=== PATIENT | male | born 1970 | race Caucasian/White ===

== ENCOUNTER → 2017-08-09 08:50 | Outpatient (CLI) | payer OTHER, SELFPAY ==
[2017-08-09 12:38] LABS: Absolute Lymphocyte Count 2.26 X10^3/ul (0.83-4.51); Basophil# 0.14 X10^3/uL; Basophil% 1.5 % (0-1); Eosinophil# 0.22 X10^3/uL; Eosinophils% 2.3 % (0-5); Hematocrit 51.4 % (40-54); Hemoglobin 17.7 g/dl (13.0-16.5); Lymphocyte # 2.26 X10^3/ul (4.0); Mean Corp Hgb Conc 34.4 g/gl (32-36); Mean Corpuscular Hgb 31.9 pg (27.0-32.0); Mean Corpuscular Volume 92.8 fL (80-94); Mean Platelet Vol. 11.8 fl (6.2-12.0); Monocyte% 8.5 % (0-10); Neutrophil # 5.99 X10^3/uL (2.7-7.7); Neutrophil % 63.6 % (47-70); Platelet Count 211 K/mm3 (150-450); RBC Distribution Width CV 13.3 % (11.6-14.6); Red Blood Count 5.54 M/mm3 (4.6-6.2); White Blood Count 9.4 K/mm3 (4.4-11.0)
[2017-08-09 12:39] LABS: POSITIVE COUNT NO; POSITIVE DIFFERENTIAL NO; POSITIVE MORPHOLOGY NO
[2017-08-09 13:14] LABS: ALB/GLOB Ratio 1.1 RATIO (0.9-2.4); AST(SGOT) 20 U/L (15-37); Alanine Aminotransfer ALT/SGPT 37 U/L (16-61); Albumin, Serum 4.3 g/dL (3.2-5.0); Alkaline Phosphatase 72 U/L (45-117); Anion Gap 10 (5-15); BUN 14 mg/dL (7-18); BUN/Creat Ratio 14.7 RATIO (10-20); Calcium,Total 9.5 mg/dL (8.5-10.1); Chloride 98 mmol/L (98-107); Creatinine, Serum 0.95 mg/dL (0.70-1.30); EST Glomerular Filtration Rate 90 mL/min (>60); Est Glom Filt Rate - Afr Amer 109 mL/min (>60); Globulin 3.8 g/dL (2.2-4.2); Glucose 159 mg/dL (74-106); Potassium 4.2 mmol/L (3.5-5.1); Protein, Total 8.1 g/dL (6.4-8.2); Sodium Level 135 mmol/L (136-145); Thyroid Stim Hormone (TSH) 1.71 uIU/mL (0.358-3.74)
== END ==
PROVIDERS: Visit Provider Family Medicine Geriatric Medicine
DX: E11.9 Type 2 diabetes mellitus without complications (principal); I10 Essential (primary) hypertension; F52.8 Other sexual dysfunction not due to a substance or known physiological condition
CPT/HCPCS: 36415; 80053; 84403; 84443; 85025

== ENCOUNTER → 2017-10-25 10:50 | Outpatient (CLI) | payer OTHER, SELFPAY ==
[2017-10-25 12:54] LABS: Absolute Lymphocyte Count 2.52 X10^3/ul (0.83-4.51); Absolute Neutrophil Count 5.6 X10^3/uL (2.0-7.7); Basophil# 0.16 X10^3/uL; Basophil% 1.7 % (0-1); Eosinophil# 0.39 X10^3/uL; Eosinophils% 4.1 % (0-5); Hemoglobin 16.9 g/dl (13.0-16.5); Lymphocyte # 2.52 X10^3/ul (4.0); Lymphocyte % 26.5 % (19-41); Mean Corp Hgb Conc 35.2 g/gl (32-36); Mean Corpuscular Hgb 32.5 pg (27.0-32.0); Mean Corpuscular Volume 92.3 fL (80-94); Monocyte# 0.82 X10^3/uL; Monocyte% 8.6 % (0-10); Neutrophil # 5.57 X10^3/uL (2.7-7.7); Neutrophil % 58.7 % (47-70); Platelet Count 190 K/mm3 (150-450); RBC Distribution Width CV 13.3 % (11.6-14.6); RBC Distribution Width SD 43.7 fl (35.1-43.9); White Blood Count 9.5 K/mm3 (4.4-11.0)
[2017-10-25 12:57] LABS: POSITIVE COUNT NO; POSITIVE DIFFERENTIAL NO; POSITIVE MORPHOLOGY NO
[2017-10-25 13:26] LABS: ALB/GLOB Ratio 1.2 RATIO (0.9-2.4); AST(SGOT) 15 U/L (15-37); Alanine Aminotransfer ALT/SGPT 30 U/L (16-61); Albumin, Serum 4.2 g/dL (3.2-5.0); Alkaline Phosphatase 77 U/L (45-117); Anion Gap 7 (5-15); BUN 12 mg/dL (7-18); BUN/Creat Ratio 12.7 RATIO (10-20); Calcium,Total 8.9 mg/dL (8.5-10.1); Chloride 98 mmol/L (98-107); Creatinine, Serum 0.95 mg/dL (0.70-1.30); EST Glomerular Filtration Rate 90 mL/min (>60); Est Glom Filt Rate - Afr Amer 109 mL/min (>60); Globulin 3.6 g/dL (2.2-4.2); Glucose 354 mg/dL (74-106); Potassium 4.2 mmol/L (3.5-5.1); Protein, Total 7.8 g/dL (6.4-8.2); Sodium Level 134 mmol/L (136-145); Thyroid Stim Hormone (TSH) 1.92 uIU/mL (0.358-3.74)
== END ==
LOC: POLAB3 10:51
PROVIDERS: Visit Provider Family Medicine Geriatric Medicine
DX: I10 Essential (primary) hypertension (principal); E11.9 Type 2 diabetes mellitus without complications; F52.8 Other sexual dysfunction not due to a substance or known physiological condition
CPT/HCPCS: 36415; 80053; 84403; 84443; 85025

== ENCOUNTER → 2017-11-08 11:09 | Outpatient (CLI) | payer OTHER, SELFPAY ==
--- NOTE | 2017-11-08 11:18 | RAD_ITS ---
STUDY: X-RAY - RIGHT SHOULDER REASON FOR EXAM: Male, 47 years old. Shoulder pain. TECHNIQUE: 4 view(s) of the shoulder. COMPARISON: None. FINDINGS: Normal glenohumeral articulation. Normal acromioclavicular joint. Normal acromion. Normal humeral head and visualized proximal humerus. The soft tissue structures are unremarkable. Normal visualized pulmonary apex. RAD/Shoulder min 2 Views IMPRESSION: Normal x-ray examination of the shoulder. Electronically Signed: Chris Whitmore MD at 14:29 EDT Tel [phone], Service support ,
== END ==
LOC: RAD 11:11
PROVIDERS: Family Provider Family Medicine Geriatric Medicine; PCP Family Medicine Geriatric Medicine; Visit Provider Family Medicine Geriatric Medicine
DX: M75.101 Unspecified rotator cuff tear or rupture of right shoulder, not specified as traumatic (principal)
CPT/HCPCS: 73030

== ENCOUNTER → 2017-11-14 10:11 | Outpatient (CLI) | payer OTHER, SELFPAY ==
--- NOTE | 2017-11-14 10:17 | MRI_ITS ---
STUDY: MRI RIGHT SHOULDER REASON FOR EXAM: Right shoulder pain for 6 months, decreased range of motion, no specific injury. TECHNIQUE: Standardized fat and water weighted pulse sequences were obtained in all 3 orthogonal planes. COMPARISON: Radiographs 09/08/2017. FINDINGS: There is supraspinatus tendinosis (T2 coronal images 10-14) without discrete tendon tear. Normal infraspinatus tendon. Normal subscapularis tendon. Normal teres minor tendon. Normal supraspinatus muscle. Normal infraspinatus muscle. Normal subscapularis muscle. Normal teres minor muscle. Normal glenohumeral articulation. There is very mild cystic change of the posterior aspect of the humeral head. Normal biceps labral complex. Normal intracapsular long biceps tendon. There is a small volume of fluid in the bicipital tendon sheath (proton-density axial images 17-20). Normal labrum. Normal capsulo- ligamentous complex. There is acromioclavicular arthrosis without substantial undersurface osteophytes (T2 sagittal images 14, 15). There is a Type II morphology (curved), with a neutral orientation. There is no subacromial-subdeltoid bursal fluid. Normal visualized coracohumeral and coracoacromial ligaments. Normal deltoid muscle. Normal trapezius muscle. MRI/Upper Ext Joint Only(Routine) IMPRESSION: Supraspinatus tendinosis without demonstrated rotator cuff tear. Mild bicipital tenosynovitis. Acromioclavicular arthrosis. Electronically Signed: Randall Urbina MD at 11:58 EDT Tel , Service support ,
== END ==
LOC: MRI 10:12
PROVIDERS: Family Provider Family Medicine Geriatric Medicine; PCP Family Medicine Geriatric Medicine; Visit Provider Family Medicine Geriatric Medicine
DX: M75.100 Unspecified rotator cuff tear or rupture of unspecified shoulder, not specified as traumatic (principal)
CPT/HCPCS: 73221

== ENCOUNTER 2017-12-18 10:39 | Emergency (ER) | payer OTHER, SELFPAY ==
[2017-12-18 10:41] VITALS: BP 127/84; PULSE 110; RESP 23; TEMP 36.8; O2SAT 97; BMI 31.4
--- NOTE | 2017-12-18 10:56 | RAD_ITS ---
STUDY: X-RAY CHEST REASON FOR EXAM: Male, 47 years old. Near-syncopal episode TECHNIQUE: Single view of the chest was obtained COMPARISON: None. FINDINGS: Mild perihilar streaky opacities. Cardiac size slightly prominent. Left upper lobe nodule density seen which can be assessed with follow-up chest radiograph in 3-6 months. IMPRESSION: Mild perihilar congestive changes. No focal airspace consolidation. Left upper lobe nodule which can be assessed with follow-up chest radiograph Electronically Signed: Phillip Parks, at 12:26 EDT Tel , Service support , RAD/Chest 1 View (Portable)
--- NOTE | 2017-12-18 10:56 | EKG12_ITS ---
Test Reason : DIZZINESS Blood Pressure : / mmHG Vent. Rate : 109 BPM Atrial Rate : 109 BPM P-R Int : 168 ms QRS Dur : 086 ms QT Int : 344 ms P-R-T Axes : 054 -59 043 degrees QTc Int : 463 ms Sinus tachycardia Left axis deviation Inferior infarct , age undetermined Abnormal ECG Confirmed by PIEDAD HERNANDEZ, ARSALAN ([id number]), proposal editor EARL CESAR ([id number]) on 12/20/2017 10:14:48 AM Referred By: MURRAY Confirmed By:ARSALAN HERBERT MD
[2017-12-18 11:02] VITALS: O2SAT 96
--- NOTE | 2017-12-18 11:19 | ED.DCSUM_ITS ---
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 He went to do a routine fire exercise drill required quite a heavy exertional activity where he was lifting fire hose disposes simulating patient rescue etc. at the end of the session he felt very fatigued and tired so he laid down raised his feet he felt better and then as he went to do additional exercise he again got fatigued and tired he sat down, his colleagues took his blood pressures about 94 and he was brought to the hospital. He had no syncope he has no chest pain fever cough abdominal pain he received a liter of fluid by now he said he is feeling much better indicates had a cardiac stress test about 4 years ago that was unremarkable, he indicates he has not been ill in any way his blood sugars are been uncontrolled as has his cholesterol he has not eaten yet today. He denies any pain in his extremities Physical Examination: [] His vital signs are within normal range he appears to be drenched in sweat his HEENT exam is unremarkable his lungs are clear heart tones remarkable heart rate 105 abdomen soft nontender upper lower extremities unremarkable neurologically is awake moving all 4 he adamantly denies any syncope any chest pain he states that he feels much better Test Results: [] Emergency Department Course and Treatment: [] In all the above screening labs EKG troponin chest x-ray IV fluids p.o. challenge Report now that was hot in the building he was sweating quite a bit he is taking p.o. fluids and liquids here and solids feels much better wants to go home Vital signs remained normal his EKG shows nothing acute his labs and chest x- ray are unremarkable except for some nonspecific sense of congestion in the chest x-ray per radiology and a small nodule that they recommend outpatient follow-up for reevaluation patient is eaten he is a full charge bookkeeper he states he feels fine he wants to go home we discussed the concept of an occult process causing all the above but again he feels fine wants to go home he will follow- up with his physicians and return for change in symptoms and have cautioned him regarding the nodule for follow-up of that as well and he will do so Treatment Plan: [] Disposition: [] Home stable Impression: [] fatigue, suspect exercise-induced This note was generated with [employer] dictation software. It may contain incorrect words, spelling, and punctuation that were not noted in review of the chart prior to signing ED Disposition - Plan for ED Patient: Chief Complaint: Syncope Referrals: Kirill Cook Chi, MD [Primary Care Provider] -
[2017-12-18 11:28] LABS: Absolute Lymphocyte Count 1.56 X10^3/ul (0.83-4.51); Absolute Neutrophil Count 14.3 X10^3/uL (2.0-7.7); Basophil# 0.06 X10^3/uL; Basophil% 0.3 % (0-1); Eosinophil# 0.12 X10^3/uL; Eosinophils% 0.7 % (0-5); Hematocrit 47.2 % (40-54); Hemoglobin 15.9 g/dl (13.0-16.5); Lymphocyte # 1.56 X10^3/ul (4.0); Lymphocyte % 9.1 % (19-41); Mean Corp Hgb Conc 33.7 g/gl (32-36); Mean Corpuscular Hgb 32.4 pg (27.0-32.0); Mean Corpuscular Volume 96.3 fL (80-94); Mean Platelet Vol. 11.4 fl (6.2-12.0); Monocyte# 1.07 X10^3/uL; Monocyte% 6.2 % (0-10); Neutrophil % 83.5 % (47-70); Platelet Count 164 K/mm3 (150-450); RBC Distribution Width CV 13.1 % (11.6-14.6); RBC Distribution Width SD 45.6 fl (35.1-43.9); White Blood Count 17.2 K/mm3 (4.4-11.0)
[2017-12-18 11:30] LABS: POSITIVE COUNT NO; POSITIVE DIFFERENTIAL NO; POSITIVE MORPHOLOGY NO
[2017-12-18] MEDS: 0.9% Normal Saline 1,000 ML 999 ML IV ×2 (11:39)
[2017-12-18 11:41] VITALS: BP 122/79; PULSE 103; RESP 16; O2SAT 97
[2017-12-18 11:46] LABS: Anion Gap 7 (5-15); BUN 17 mg/dL (7-18); Calcium,Total 8.8 mg/dL (8.5-10.1); Chloride 104 mmol/L (98-107); Creatinine, Serum 1.13 mg/dL (0.70-1.30); EST Glomerular Filtration Rate 74 mL/min (>60); Est Glom Filt Rate - Afr Amer 89 mL/min (>60); Estimated Creatinine Clearance 80.81 ml/min; Glucose 175 mg/dL (74-106); Potassium 4.3 mmol/L (3.5-5.1); Sodium Level 137 mmol/L (136-145)
[2017-12-18 11:55] LABS: BNP,B-Type NATRIURETIC PEPTIDE 3.4 pg/mL (0-100)
[2017-12-18 13:03] VITALS: BP 116/83
--- NOTE | 2017-12-18 13:32 | ED.DEP ---
ED Disposition - Plan for ED Patient: Chief Complaint: Syncope Instructions: ED Dizziness Syncope Fainting W Pre, ED Hypotension Orthostatic Referrals: Kirill Cook Chi, MD [Primary Care Provider] - Additional Instructions: Sure you follow-up with your doctor for additional testing and to have the lung nodule seen on chest x-ray evaluated
== END 2017-12-18 13:37 | disposition home or self-care (01) ==
PROVIDERS: Emergency Provider Emergency Medicine; Family Provider Family Medicine Geriatric Medicine; PCP Family Medicine Geriatric Medicine
DX: T73.3XXA Exhaustion due to excessive exertion, initial encounter (principal); E11.9 Type 2 diabetes mellitus without complications; E78.00 Pure hypercholesterolemia, unspecified; I95.1 Orthostatic hypotension; Z79.4 Long term (current) use of insulin; Z79.899 Other long term (current) drug therapy
CPT/HCPCS: 71045; 80048; 83880; 84484; 85025; 93005; 96360; 99285; J7030

== ENCOUNTER → 2017-12-20 12:34 | Outpatient (CLI) | payer OTHER, SELFPAY ==
--- NOTE | 2017-12-20 12:41 | CT_ITS ---
STUDY: CT CHEST WITH CONTRAST REASON FOR EXAM: Male, 47 years old. History of left upper lobe nodule. RADIATION DOSAGE (If Supplied By Facility): CTDIvol = ( 14.4 ) mGy, DLP = ( 668.6 ) mGycm TECHNIQUE: Transaxial imaging was performed following intravenous administration of 100 ml of Isovue 300 contrast material. Multiplanar coronal and sagittal images were reformatted. Individualized dose optimization techniques were used for this CT. COMPARISON: Comparison is made with prior chest radiograph dated December 18, 2017. FINDINGS: Small bilateral axillary lymph nodes. The lungs are normal. There is no demonstrated pleural abnormality. Normal heart and pericardium. There are multiple small lymph nodes within the mediastinum, which are normal in size and morphology most compatible with reactive lymph hyperplasia. Normal hilar regions. Normal enhanced pulmonary arteries. Normal aorta arch and descending thoracic aorta. There are multi-level degenerative changes of the thoracic spine. There is no demonstrated abnormality of the visualized upper abdomen. CT/Chest WITH Contrast IMPRESSION: No pulmonary nodules seen. Electronically Signed: Chris Whitmore MD at 13:41 EDT Tel [phone], Service support ,
== END ==
PROVIDERS: Family Provider Family Medicine Geriatric Medicine; PCP Family Medicine Geriatric Medicine; Visit Provider Family Medicine Geriatric Medicine
DX: R22.2 Localized swelling, mass and lump, trunk (principal)
CPT/HCPCS: 71260; Q9967

== ENCOUNTER → 2018-01-11 08:04 | Outpatient (CLI) | payer OTHER, SELFPAY ==
--- NOTE | 2018-01-11 08:08 | RAD_ITS ---
PROCEDURE: Fluoroscopic guided right shoulder Injection DATE: January 11, 2018. INDICATION: Male, 47 years old. Chronic right shoulder pain. PHYSICIAN: Chris Whitmore M.D. MEDICATIONS: 12 mg of betamethasone and 4 cc of lidocaine 1%. 2% Lidocaine administered subcutaneously for local anesthesia. ACCESS SITE: Right shoulder. NEEDLE: 22-gauge spinal needle. FLUOROSCOPY TIME (if supplied): (35 seconds.) minutes/seconds FINDINGS: The risks, benefits, and alternatives to the procedure were explained to the patient. The specific risks of bleeding, infection, and neurovascular injury were detailed and accepted. Witnessed informed consent was obtained. A 22-gauge spinal needle was positioned under radiographic fluoroscopic localization. Approximately 2 cc of Isovue-300 instilled for localization purposes. Medication was then injected. The patient tolerated the procedure well without any immediate complications. RAD/Inj/Asp Jeremiah Jt Should/Hip/Knee IMPRESSION: 1. Successful fluoroscopic guided right shoulder injection. Electronically Signed: Chris Whitmore MD at 8:54 EDT Tel [phone], Service support ,
== END ==
PROVIDERS: Family Provider Family Medicine Geriatric Medicine; PCP Family Medicine Geriatric Medicine; Visit Provider Specialist
DX: M75.41 Impingement syndrome of right shoulder (principal)
CPT/HCPCS: 20610; 77002; Q9967; J0702

== ENCOUNTER → 2018-05-16 13:57 | Outpatient (CLI) | payer OTHER, SELFPAY ==
[2018-05-16 17:21] LABS: Absolute Lymphocyte Count 2.31 X10^3/ul (0.83-4.51); Absolute Neutrophil Count 5.8 X10^3/uL (2.0-7.7); Basophil# 0.11 X10^3/uL; Basophil% 1.2 % (0-1); Eosinophil# 0.22 X10^3/uL; Eosinophils% 2.4 % (0-5); Hemoglobin 16.8 g/dl (13.0-16.5); Lymphocyte # 2.31 X10^3/ul (4.0); Lymphocyte % 25.5 % (19-41); Mean Corp Hgb Conc 34.3 g/gl (32-36); Mean Corpuscular Hgb 32.3 pg (27.0-32.0); Mean Corpuscular Volume 94.2 fL (80-94); Mean Platelet Vol. 12.1 fl (6.2-12.0); Monocyte# 0.63 X10^3/uL; Neutrophil # 5.76 X10^3/uL (2.7-7.7); Neutrophil % 63.7 % (47-70); Platelet Count 205 K/mm3 (150-450); RBC Distribution Width CV 13.3 % (11.6-14.6); RBC Distribution Width SD 44.9 fl (35.1-43.9); White Blood Count 9.1 K/mm3 (4.4-11.0)
[2018-05-16 17:23] LABS: POSITIVE COUNT NO; POSITIVE DIFFERENTIAL NO; POSITIVE MORPHOLOGY NO
[2018-05-16 17:48] LABS: ALB/GLOB Ratio 1.1 RATIO (0.9-2.4); AST(SGOT) 19 U/L (15-37); Alanine Aminotransfer ALT/SGPT 33 U/L (16-61); Albumin, Serum 3.9 g/dL (3.2-5.0); Alkaline Phosphatase 74 U/L (45-117); Anion Gap 10 (5-15); BUN 12 mg/dL (7-18); BUN/Creat Ratio 12.7 RATIO (10-20); Calcium,Total 8.6 mg/dL (8.5-10.1); Chloride 102 mmol/L (98-107); Creatinine, Serum 0.94 mg/dL (0.70-1.30); EST Glomerular Filtration Rate 91 mL/min (>60); Est Glom Filt Rate - Afr Amer 110 mL/min (>60); Globulin 3.5 g/dL (2.2-4.2); Glucose 237 mg/dL (74-106); Protein, Total 7.4 g/dL (6.4-8.2); Sodium Level 137 mmol/L (136-145); Thyroid Stim Hormone (TSH) 0.99 uIU/mL (0.358-3.74)
== END ==
PROVIDERS: Family Provider Family Medicine Geriatric Medicine; PCP Family Medicine Geriatric Medicine; Visit Provider Family Medicine Geriatric Medicine
DX: E11.9 Type 2 diabetes mellitus without complications (principal); F52.8 Other sexual dysfunction not due to a substance or known physiological condition; I10 Essential (primary) hypertension
CPT/HCPCS: 36415; 80053; 84403; 84443; 85025

== ENCOUNTER → 2018-08-14 13:58 | Outpatient (CLI) | payer OTHER, SELFPAY ==
[2018-02-05 08:41] VITALS: BMI 31.4
[2018-08-14 14:42] LABS: Absolute Neutrophil Count 5.6 X10^3/uL (2.0-7.7); Basophil# 0.13 X10^3/uL; Basophil% 1.4 % (0-1); Eosinophil# 0.35 X10^3/uL; Eosinophils% 3.7 % (0-5); Hematocrit 51.1 % (40-54); Hemoglobin 16.5 g/dl (13.0-16.5); Lymphocyte % 27.3 % (19-41); Mean Corp Hgb Conc 32.3 g/gl (32-36); Mean Corpuscular Hgb 31.4 pg (27.0-32.0); Mean Corpuscular Volume 97.1 fL (80-94); Mean Platelet Vol. 12.3 fl (6.2-12.0); Monocyte# 0.79 X10^3/uL; Monocyte% 8.3 % (0-10); Neutrophil # 5.64 X10^3/uL (2.7-7.7); Platelet Count 217 K/mm3 (150-450); RBC Distribution Width CV 13.9 % (11.6-14.6); RBC Distribution Width SD 49.2 fl (35.1-43.9); Red Blood Count 5.26 M/mm3 (4.6-6.2); White Blood Count 9.5 K/mm3 (4.4-11.0)
[2018-08-14 14:53] LABS: ALB/GLOB Ratio 1.1 RATIO (0.9-2.4); AST(SGOT) 16 U/L (15-37); Alanine Aminotransfer ALT/SGPT 29 U/L (16-61); Alkaline Phosphatase 86 U/L (45-117); Anion Gap 8 (5-15); BUN 16 mg/dL (7-18); BUN/Creat Ratio 17.6 RATIO (10-20); Calcium,Total 8.7 mg/dL (8.5-10.1); Chloride 102 mmol/L (98-107); Creatinine, Serum 0.91 mg/dL (0.70-1.30); EST Glomerular Filtration Rate 94 mL/min (>60); Est Glom Filt Rate - Afr Amer 114 mL/min (>60); Globulin 3.7 g/dL (2.2-4.2); Glucose 287 mg/dL (74-106); Potassium 4.5 mmol/L (3.5-5.1); Protein, Total 7.7 g/dL (6.4-8.2); Sodium Level 136 mmol/L (136-145); Thyroid Stim Hormone (TSH) 1.21 uIU/mL (0.358-3.74)
[2018-08-14 14:55] LABS: POSITIVE COUNT NO; POSITIVE DIFFERENTIAL NO; POSITIVE MORPHOLOGY NO
== END ==
LOC: POLAB3 13:58
PROVIDERS: Family Provider Family Medicine Geriatric Medicine; PCP Family Medicine Geriatric Medicine; Visit Provider Family Medicine Geriatric Medicine
DX: E11.9 Type 2 diabetes mellitus without complications (principal); F52.8 Other sexual dysfunction not due to a substance or known physiological condition
CPT/HCPCS: 36415; 80053; 84403; 84443; 85025

== ENCOUNTER → 2018-08-23 08:37 | Outpatient (REF) | payer OTHER, SELFPAY ==
[2018-08-23 08:27] VITALS: BMI 31.4
== END ==
LOC: HPRAD 08:37
PROVIDERS: Family Provider Family Medicine Geriatric Medicine; PCP Family Medicine Geriatric Medicine; Referring Provider Chiropractor; Visit Provider Chiropractor
DX: M99.02 Segmental and somatic dysfunction of thoracic region (principal); M99.03 Segmental and somatic dysfunction of lumbar region; M99.05 Segmental and somatic dysfunction of pelvic region
CPT/HCPCS: 72100

== ENCOUNTER → 2018-12-29 | Outpatient (CLI) | payer OTHER, SELFPAY ==
[2018-10-09 08:24] VITALS: BMI 31.4
[2018-12-29 11:16] LABS: Absolute Neutrophil Count 5.5 X10^3/uL (2.0-7.7); Basophil# 0.12 X10^3/uL; Basophil% 1.4 % (0-1); Eosinophil# 0.25 X10^3/uL; Eosinophils% 2.9 % (0-5); Hematocrit 45.2 % (40-54); Lymphocyte % 22.2 % (19-41); Mean Corp Hgb Conc 35.4 g/gl (32-36); Mean Corpuscular Hgb 32.3 pg (27.0-32.0); Mean Corpuscular Volume 91.1 fL (80-94); Mean Platelet Vol. 11.8 fl (6.2-12.0); Monocyte# 0.75 X10^3/uL; Monocyte% 8.8 % (0-10); Neutrophil # 5.52 X10^3/uL (2.7-7.7); Neutrophil % 64.5 % (47-70); Platelet Count 210 K/mm3 (150-450); RBC Distribution Width CV 12.8 % (11.6-14.6); RBC Distribution Width SD 42.3 fl (35.1-43.9); Red Blood Count 4.96 M/mm3 (4.6-6.2); White Blood Count 8.6 K/mm3 (4.4-11.0)
[2018-12-29 11:19] LABS: POSITIVE COUNT NO; POSITIVE DIFFERENTIAL NO; POSITIVE MORPHOLOGY NO
[2018-12-29 11:38] LABS: ALB/GLOB Ratio 1.2 RATIO (0.9-2.4); AST(SGOT) 11 U/L (15-37); Alanine Aminotransfer ALT/SGPT 20 U/L (16-61); Albumin, Serum 4.1 g/dL (3.2-5.0); Alkaline Phosphatase 94 U/L (45-117); Anion Gap 5 (5-15); BUN 12 mg/dL (7-18); BUN/Creat Ratio 11.9 RATIO (10-20); Calcium,Total 9.4 mg/dL (8.5-10.1); Chloride 99 mmol/L (98-107); Creatinine, Serum 1.01 mg/dL (0.70-1.30); EST Glomerular Filtration Rate 84 mL/min (>60); Est Glom Filt Rate - Afr Amer 101 mL/min (>60); Globulin 3.5 g/dL (2.2-4.2); Glucose 383 mg/dL (74-106); Potassium 4.2 mmol/L (3.5-5.1); Protein, Total 7.6 g/dL (6.4-8.2); Sodium Level 133 mmol/L (136-145); Thyroid Stim Hormone (TSH) 1.28 uIU/mL (0.358-3.74)
== END | disposition home or self-care (01) ==
LOC: POLAB3 08:40
PROVIDERS: Family Provider Family Medicine Geriatric Medicine; PCP Family Medicine Geriatric Medicine; Visit Provider Family Medicine Geriatric Medicine
DX: E11.9 Type 2 diabetes mellitus without complications (principal); F52.8 Other sexual dysfunction not due to a substance or known physiological condition; I10 Essential (primary) hypertension
CPT/HCPCS: 36415; 80053; 84403; 84443; 85025

== ENCOUNTER 2018-12-31 19:33 | Emergency (ER) | payer OTHER, SELFPAY ==
[2018-10-09 08:24] VITALS: BMI 31.4
[2018-12-31 19:34] VITALS: BP 153/94; PULSE 100; RESP 16; TEMP 36.6; O2SAT 99; BMI 28.6
--- NOTE | 2018-12-31 19:45 | EKG12_ITS ---
Test Reason : ABD PAIN Blood Pressure : / mmHG Vent. Rate : 086 BPM Atrial Rate : 086 BPM P-R Int : 148 ms QRS Dur : 088 ms QT Int : 376 ms P-R-T Axes : 018 -55 038 degrees QTc Int : 449 ms Normal sinus rhythm Possible Left atrial enlargement Left axis deviation Inferior infarct , age undetermined Abnormal ECG Confirmed by PRADEEP HERNANDEZ, TERRELL ([id number]), development editor REJI REINOSO ([id number]) on 01/04/2019 1:25:40 PM Referred By: AMRIT Confirmed By:TERRELL FERNÁNDEZ MD
[2018-12-31 20:31] LABS: Bedside Glucose 251 mg/dL (70-110)
[2018-12-31 20:41] VITALS: PULSE 80; RESP 16; O2SAT 99
[2018-12-31 20:43] LABS: Absolute Lymphocyte Count 3.52 X10^3/ul (0.83-4.51); Absolute Neutrophil Count 7.4 X10^3/uL (2.0-7.7); Basophil# 0.12 X10^3/uL; Eosinophil# 0.27 X10^3/uL; Eosinophils% 2.2 % (0-5); Hematocrit 48.9 % (40-54); Hemoglobin 17.7 g/dl (13.0-16.5); Lymphocyte # 3.52 X10^3/ul (4.0); Mean Corp Hgb Conc 36.2 g/gl (32-36); Mean Corpuscular Hgb 32.8 pg (27.0-32.0); Mean Corpuscular Volume 90.7 fL (80-94); Mean Platelet Vol. 11.8 fl (6.2-12.0); Monocyte# 0.86 X10^3/uL; Monocyte% 7.1 % (0-10); Neutrophil # 7.36 X10^3/uL (2.7-7.7); Neutrophil % 60.5 % (47-70); Platelet Count 224 K/mm3 (150-450); RBC Distribution Width CV 12.9 % (11.6-14.6); RBC Distribution Width SD 42.4 fl (35.1-43.9); Red Blood Count 5.39 M/mm3 (4.6-6.2); White Blood Count 12.2 K/mm3 (4.4-11.0)
[2018-12-31 20:44] LABS: POSITIVE COUNT NO; POSITIVE DIFFERENTIAL NO; POSITIVE MORPHOLOGY NO
[2018-12-31 20:55] LABS: Anion Gap 6 (5-15); BUN 13 mg/dL (7-18); BUN/Creat Ratio 13.6 RATIO (10-20); Calcium,Total 10.9 mg/dL (8.5-10.1); Chloride 98 mmol/L (98-107); Creatinine, Serum 0.95 mg/dL (0.70-1.30); EST Glomerular Filtration Rate 89 mL/min (>60); Est Glom Filt Rate - Afr Amer 108 mL/min (>60); Estimated Creatinine Clearance 95.09 ml/min; Glucose 275 mg/dL (74-106); Potassium 3.7 mmol/L (3.5-5.1); Sodium Level 134 mmol/L (136-145)
[2018-12-31] MEDS: Ketorolac 30 MG/ML Syringe IV (21:38)
[2018-12-31] MEDS: 0.9% Normal Saline 1,000 ML 1000 ML IV (21:38)
[2018-12-31] MEDS: Ondansetron 4 MG/2 ML Vial IV (21:38)
[2018-12-31 21:48] LABS: Bacteria 0 SEEN /hpf (None Seen); Squamous Epithelial Cells - UA 0 SEEN /hpf (0-5); White Blood Cells 0 SEEN /hpf (0-5)
[2018-12-31 21:50] LABS: Color, Urine Yellow (Yellow); Glucose, Dipstick 1000 mg/dl (Normal); Ketone-Dipstick 15 mg/dl (Negative); Leukocyte Esterase-Dipstick Negative /ul (Negative); Nitrite-Dipstick Negative (Negative); Occult Blood-Urine 10 /ul (Negative); Protein-Dipstick 15 mg/dl (Negative); Specific Gravity, Urine 1.015 (1.002-1.030); Urine Bilirubin Dipstick Negative (Negative); Urine Clarity Clear (Clear); Urine Urobilinogen Normal (Normal)
[2018-12-31 22:02] VITALS: PULSE 80; RESP 16; O2SAT 98
[2018-12-31 22:04] LABS: Hyaline Cast 0-5 SEEN /lpf (0-5); Mucous, Urine RARE /hpf (<or=2+); Red Blood Cells-Urine 0-5 SEEN /hpf (0-5)
--- NOTE | 2018-12-31 23:03 | ED.VIS.GEN ---
History of Present Illness Chief Complaint: Nausea/Vomiting Detail of Chief Complaint: Nausea, vomiting, headache Informant: Patient Onset: Today Context: Gradual Onset Current Severity: Mild Maximum Severity: Moderate Narrative: Patient states he generally did not feel well today and went out golfing in the heat. On the way home he noted some heartburn that resolved after taking some Tums. When he returned home he laid down and after 2 hours got up with nausea, vomiting, and sweats. He was unable to get symptoms to resolve at home. He denies fever. He had some mild epigastric pain. - Past Medical History (1) High cholesterol Status: Acute (2) Hypertension Status: Chronic (3) Diabetes Status: Acute (4) Anxiety and depression Status: Acute Past Medical History - Allergies and Home Meds Allergies/Adverse Reactions: Allergies No Known Allergies Allergy (Verified 12/31/18 19:36) Primary Care Physician: Kirill Cook Chi, MD [Primary Care Provider] - 3-5 Days if not improving Prior records reviewed: Yes Past Medical History: - Smoking Status: Current every day smoker Review of Systems General: Denies: Chills, Fever Cardiovascular: Reports: Chest pain, - - Heartburn symptoms earlier today Respiratory: Denies: Dyspnea, Cough Gastrointestinal: Reports: Abdominal pain, Nausea, Vomiting. Denies: Diarrhea Genitourinary: Denies: Dysuria Neurological: Reports: Headache Physical Exam Vital Signs/Narrative: Vital Signs Temp Pulse Resp BP Pulse Ox 12/31/18 22:02 80 16 98 12/31/18 20:41 80 16 99 12/31/18 19:34 97.9 F 100 16 153/94 H 99 General: Well nourished, Well developed ENT: Moist mucous membranes Cardiovascular: Regular rate, Regular rhythm Respiratory: No distress, CTA bilaterally Abdomen: Soft, Normal bowel sounds, Tender, - - Mild epigastric tenderness.. Negative for: Guarding, Rebound tenderness Extremities: Nontender Skin: Normal color, No rash Neurological: Alert, Oriented x3 Psychological: Normal affect Diagnostic/Tx/Re-eval Laboratory Results 12/31/18 12/31/18 12/31/18 19:13 19:13 19:13 WBC 12.2 H RBC 5.39 Hgb 17.7 H Hct 48.9 MCV 90.7 MCH 32.8 H MCHC 36.2 H RDW 12.9 RDW Differential 42.4 Plt Count 224 MPV 11.8 Immature Gran % (Auto) 0.200 Neut % (Auto) 60.5 Lymph % (Auto) 29.0 Dane % (Auto) 7.1 Eos % (Auto) 2.2 Baso % (Auto) 1.0 Absolute Neuts (auto) 7.4 Absolute Lymphs (auto) 3.52 Total Counted Not Reportable Sodium 134 L Potassium 3.7 Chloride 98 Carbon Dioxide 30.0 Anion Gap 6 BUN 13 Creatinine 0.95 Estim Creat Clear Calc 95.09 Est GFR (MDRD) Af Amer 108 Est GFR (MDRD) Non-Af 89 BUN/Creatinine Ratio 13.6 Glucose 275 H Calcium 10.9 H Troponin I < 0.015 Urine Color Urine Clarity Urine pH Ur Specific [place] Urine Protein Urine Glucose (UA) Urine Ketones Urine Occult Blood Urine Nitrite Urine Bilirubin Urine Urobilinogen Ur Leukocyte Esterase Urine RBC Urine WBC Ur Squamous Epith Cells Urine Bacteria Hyaline Casts Urine Mucus POC Glucose 12/31/18 12/31/18 19:56 21:35 WBC RBC Hgb Hct MCV MCH MCHC RDW RDW Differential Plt Count MPV Immature Gran % (Auto) Neut % (Auto) Lymph % (Auto) [place]ane % (Auto) Eos % (Auto) Baso % (Auto) Absolute Neuts (auto) Absolute Lymphs (auto) Total Counted Sodium Potassium Chloride Carbon Dioxide Anion Gap BUN Creatinine Estim Creat Clear Calc Est GFR (MDRD) Af Amer Est GFR (MDRD) Non-Af BUN/Creatinine Ratio Glucose Calcium Troponin I Urine Color Yellow Urine Clarity Clear Urine pH 6.0 Ur Specific [place] 1.015 Urine Protein 15 H Urine Glucose (UA) 1000 H Urine Ketones 15 H Urine Occult Blood 10 H Urine Nitrite Negative Urine Bilirubin Negative Urine Urobilinogen Normal Ur Leukocyte Esterase Negative Urine RBC 0-5 SEEN Urine WBC 0 SEEN Ur Squamous Epith Cells 0 SEEN Urine Bacteria 0 SEEN Hyaline Casts 0-5 SEEN Urine Mucus RARE POC Glucose 251 H - EKG Initial EKG Interpretation: Sinus Rhythm, - - Sinus rhythm at 86 bpm with no acute ischemia. - Medical Decision Making Patient was given 2 L of IV fluid, Zofran, and Toradol. On repeat evaluation he feels significantly improved. ED Disposition - Plan for ED Patient: Disposition: Home or Assisted Living Diagnosis: Dehydration Instructions: DEHYDRATION (6y-Adult) Prescriptions: Ondansetron [Zofran Odt] 4 mg PO Q8H PRN PRN #10 tab PRN Reason: Nausea Prescription Printed Referrals: Kirill Cook Chi, MD [Primary Care Provider] - 3-5 Days if not improving
[2018-12-31 23:21] VITALS: PULSE 97; RESP 19; O2SAT 97
== END 2018-12-31 23:22 | disposition home or self-care (01) ==
PROVIDERS: Emergency Provider Emergency Medicine; Family Provider Family Medicine Geriatric Medicine; PCP Family Medicine Geriatric Medicine
DX: E86.0 Dehydration (principal); I10 Essential (primary) hypertension; E11.9 Type 2 diabetes mellitus without complications; E78.00 Pure hypercholesterolemia, unspecified; Z79.4 Long term (current) use of insulin; Z79.899 Other long term (current) drug therapy; F17.200 Nicotine dependence, unspecified, uncomplicated
CPT/HCPCS: 80048; 81001; 82962; 84484; 85025; 93005; 96361; 96374; 96375; 99284; A4216; J2405

== ENCOUNTER 2020-12-15 15:24 | Emergency (ER) | payer OTHER, SELFPAY ==
[2020-12-15 15:25] VITALS: BP 165/96; PULSE 122; RESP 20; TEMP 36.3; O2SAT 99; BMI 31.1
--- NOTE | 2020-12-15 16:39 | EDS_ITS ---
HPI History of Present Illness Chief Complaint: Cellulitis Informant: patient Onset/Context/Timing Onset: Days Context: Gradual Onset Current Severity: Moderate Maximum Severity: Moderate Narrative Narrative: Patient presents secondary to diabetic foot ulcer. Patient states that he developed a blister to his right great toe couple months ago after wearing some new work boots. He stated been doing quite well until mid last week when he developed more pain and swelling to the area. He had some mild blood draining from the wound. Today at noon he felt feverish at work and came in for evaluation. He states his blood sugars have been under good control. [facility] Medical History (Updated 12/15/20 @ 19:[address] Priya Jones MD) Back pain Diabetes Fatigue High cholesterol High triglycerides HTN (hypertension) Migraines Shoulder pain Home Medications atorvastatin 40 mg tablet 40 mg PO QHS 30 Days #30 07/02/17 [History Last Taken Unknown] lisinopril 20 mg tablet 40 mg PO DAILY 30 Days #30 07/02/17 [History Last Taken Unknown] metformin 1,000 mg tablet 1,000 mg PO BID 30 Days #60 07/02/17 [History Last Taken Unknown] ondansetron 4 mg PO Q8H PRN PRN #10 tab 12/31/18 [Rx Last Taken Unknown] cephalexin 500 mg PO Q6 #40 cap 12/15/20 [Rx Last Taken Unknown] glipizide 10 mg PO DAILY 12/15/20 [History Last Taken Unknown] hydrocodone-acetaminophen 1 tab PO Q6H PRN 3 Days #10 tab 12/15/20 [Rx Last Ta rain Unknown] insulin glargine [Lantus U-100 Insulin] 30 unit SUBCUT QHS 12/15/20 [History Last Taken Unknown] pioglitazone [Actos] 45 mg PO DAILY 12/15/20 [History Last Taken Unknown] polyethylene glycol 3350 [Miralax] 17 g PO DAILY 12/15/20 [History Last Taken Unknown] psyllium [Metamucil] 1 packet PO DAILY 12/15/20 [History Last Taken Unknown] sulfamethoxazole-trimethoprim [Bactrim DS] 1 tab PO BID #20 tab 12/15/20 [Rx Last Taken Unknown] Allergy/AdvReac Type Severity Reaction Status Date / Time empagliflozin AdvReac Other Verified 12/15/20 15:27 [From Jardiance] Family History Other Cancer Depression Diabetes Hypertension Surgical History History of straightening of nasal septum Social History Smoking Status: Current every day smoker tobacco type: cigarettes alcohol intake: current alcohol intake frequency: a few times a month substance use type: does not use what type of physical activity do you participate in: none ROS ROS ED Constitutional Constitutional ED: Reports fever(s) and subjective; Denies chills Eyes Eyes: Denies change in vision ENT ENT ED: Denies sore throat Cardiovascular Cardiovascular: Denies chest pain Respiratory/Chest Respiratory/Chest: Denies cough or dyspnea Gastrointestinal Gastrointestinal: Denies abdominal pain, diarrhea, nausea or vomiting Genitourinary Genitourinary ED: Denies dysuria Musculoskeletal Musculoskeletal: Denies back pain Integumentary Reports rash and other Details: Diabetic foot ulcer Neurologic Neurologic: Denies headache(s) or weakness Psychiatric Psychiatric: Denies anxiety or depression Endocrine Endocrinology: Denies polydipsia or polyuria Allergic/Immunologic Allergic/Immunologic ED: Denies urticaria EXAM Physical Exam Const Vital Signs: 12/15/20 15:25 12/15/20 17:12 12/15/20 18:21 Temperature 97.4 F L 98.7 F Temperature Source Temporal Temporal Pulse Rate 122 H 105 H 104 H Respiratory Rate 20 H 18 16 Blood Pressure 165/96 H 148/96 H 139/87 H Blood Pressure Mean 119 113 104 Pulse Ox 99 99 95 Oxygen Delivery Method Room Air Room Air Positive well nourished and well developed General Appearance ED: well developed HEENT Reports normocephalic and head/scalp atraumatic Eyes PERRL and EOMs intact bilaterally Neck supple Chest Wall inspection of chest normal and palpation of chest normal Resp normal respiratory effort and clear to auscultation bilaterally Cardio regular rhythm Rate: tachycardic GI normal to inspection, nondistended, normoactive bowel sounds Palpation: soft Extremity Extremity Narrative: Ulceration to the medial aspect of the right great toe. Toe is mildly edematous and erythematous. No drainage from the wound at this time. No lymphangitic streak noted. Neuro oriented x3 Sensorium / Orientation: alert Motor Exam: strength 5/5 throughout Psych mental status grossly normal MDM MDM MDM Narrative Medical decision making narrative: Foot x-rays obtained. Lab work is obtained and patient is given IV antibiotics. Lab Data Attestation: I reviewed the patient's lab results. Labs: Laboratory Results - last 24 hr 12/15/20 12/15/20 12/15/20 17:08 17:08 17:08 WBC 9.5 RBC 4.48 L Hgb 14.3 Hct 43.0 MCV 96.0 H MCH 31.9 MCHC 33.3 RDW Std Deviation 50.1 H RDW Coeff of Daniel 14.2 Plt Count 275 MPV 10.2 Immature Gran % (Auto) 0.300 Neut % (Auto) 64.2 Lymph % (Auto) 24.4 [place] % (Auto) 8.4 Eos % (Auto) 1.7 Baso % (Auto) 1.0 Absolute Neuts (auto) 6.1 Absolute Lymphs (auto) 2.31 Nucleated RBC % 0 Sodium 137 Potassium 4.5 Chloride 102 Carbon Dioxide 28.0 Anion Gap 7 BUN 11 Creatinine 0.94 Estim Creat Clear Calc 94.02 Est GFR (MDRD) Af Amer 109 Est GFR (MDRD) Non-Af 90 BUN/Creatinine Ratio 11.7 Glucose 114 H Lactic Acid 1.2 Calcium 9.4 Radiography Diagnostic Testing: Radiology Impression Foot X-Ray 12/15/20 17:30 IMPRESSION: Subtle erosive changes of the medial aspect of the base of the first distal phalanx. This is concerning for osteomyelitis. Electronically Signed: Jean-Claude Travis MD at 17:46 EDT Tel , Service support , Treatment and Re-Evaluation Comments:: Right foot x-ray per my interpretation reveals chronic changes. Radiologist interpretation is revealed and does reveal subtle erosive changes concerning for early osteomyelitis. Blood work is unremarkable with normal white count and differential. Blood sugars under good control with a BGT of 114 at this time. Patient is given Zosyn and vancomycin. I spoke with Dr. Patel. She did review the patient's images and will follow him closely in the office. Discharge Plan Triage Chief Complaint: Cellulitis ED Provider: Priya Jones Dx/Rx/DC Orders Clinical Impression: Diabetic foot ulcer Instructions: ED Diabetic Foot Care, ED Wound Care Prescriptions: New sulfamethoxazole-trimethoprim [Bactrim DS] 800-160 mg tablet 1 tab PO BID Qty: 20 RF: 0 cephalexin 500 mg capsule 500 mg PO Q6 Qty: 40 RF: 0 hydrocodone-acetaminophen 5-325 mg tablet 1 tab PO Q6H PRN (Reason: pain) 3 Days Qty: 10 RF: 0 No Action atorvastatin 40 mg tablet 40 mg PO QHS 30 Days Qty: 30 RF: 0 lisinopril 20 mg tablet 40 mg PO DAILY 30 Days Qty: 30 RF: 0 metformin 1,000 mg tablet 1,000 mg PO BID 30 Days Qty: 60 RF: 0 ondansetron 4 MG tablet 4 mg PO Q8H PRN PRN (Reason: Nausea) Qty: 10 RF: 0 glipizide 10 mg Tablet Extended Release 24hr 10 mg PO DAILY RF: 0 pioglitazone [Actos] 45 mg Tablet 45 mg PO DAILY RF: 0 Lantus U-100 Insulin 100 unit/mL Cartridge 30 unit SUBCUT QHS RF: 0 polyethylene glycol 3350 [Miralax] 17 gram Powder In Packet 17 g PO DAILY RF: 0 Metamucil Packet 1 packet PO DAILY RF: 0 Stand Alone Forms: ED Work / School Excuse Primary Care Provider: Chad Alegria Referrals: Chad Alegria MD [Primary Care Provider] - Latonia Patel DPM [STAFF PHYSICIAN] - As soon as possible Disposition Disposition: Home, self care
[2020-12-15] MEDS: Morphine 4 MG/ML Syringe IV (17:10)
[2020-12-15] MEDS: Ondansetron 4 MG/2 ML Vial IV (17:10)
[2020-12-15 17:12] VITALS: BP 148/96; PULSE 105; RESP 18; O2SAT 99
[2020-12-15] MEDS: 0.9% Normal Saline 1,000 ML 150 ML IV (17:15)
--- NOTE | 2020-12-15 17:30 | RAD_ITS ---
INDICATION: infection EXAMINATION/TECHNIQUE: X-RAY - RIGHT XR Foot Min 3 Views COMPARISON: None. FINDINGS: No acute fracture or malalignment. Subtle erosive changes of the medial aspect of the base of the first distal phalanx. No degenerative changes are seen. Dorsal heel spur. The soft tissues are unremarkable. RAD/Foot min 3 Views IMPRESSION: Subtle erosive changes of the medial aspect of the base of the first distal phalanx. This is concerning for osteomyelitis. Electronically Signed: Jean-Claude Travis MD at 17:46 EDT Tel , Service support ,
[2020-12-15 17:36] LABS: Absolute Lymphocyte Count 2.31 X10^3/uL (0.83-4.51); Absolute Neutrophil Count 6.1 X10^3/uL (2.0-7.7); Basophil# 0.09 X10^3/uL; Eosinophil# 0.16 X10^3/uL; Eosinophils% 1.7 % (0-5); Hemoglobin 14.3 g/dL (13.0-16.5); Lymphocyte # 2.31 X10^3/ul (0.83-4.51); Lymphocyte % 24.4 % (19-41); Mean Corp Hgb Conc 33.3 g/dL (32-36); Mean Corpuscular Hgb 31.9 pg (27.0-32.0); Mean Platelet Vol. 10.2 fl (6.2-12.0); Monocyte% 8.4 % (0-10); NRBC Flagged by Analyzer 0 % (0-5); Neutrophil # 6.08 X10^3/uL (2.7-7.7); Neutrophil % 64.2 % (47-70); Platelet Count 275 K/mm3 (150-450); RBC Distribution Width CV 14.2 % (11.6-14.6); RBC Distribution Width SD 50.1 fl (35.1-43.9); Red Blood Count 4.48 M/mm3 (4.6-6.2); White Blood Count 9.5 K/mm3 (4.4-11.0)
[2020-12-15 17:58] LABS: Anion Gap 7 (5-15); BUN 11 mg/dL (7-18); BUN/Creat Ratio 11.7 RATIO (10-20); Calcium,Total 9.4 mg/dL (8.5-10.1); Chloride 102 mmol/L (98-107); Creatinine, Serum 0.94 mg/dL (0.70-1.30); EST Glomerular Filtration Rate 90 mL/min (>60); Est Glom Filt Rate - Afr Amer 109 mL/min (>60); Estimated Creatinine Clearance 94.02 ml/min; Glucose 114 mg/dL (74-106); Potassium 4.5 mmol/L (3.5-5.1); Sodium Level 137 mmol/L (136-145)
[2020-12-15 18:08] LABS: Lactic Acid 1.2 mmol/L (0.4-1.9)
[2020-12-15 18:21] VITALS: BP 139/87; PULSE 104; RESP 16; TEMP 37.1; O2SAT 95
[2020-12-15 20:19] VITALS: BP 136/91; PULSE 96; RESP 18; RESP 19; O2SAT 95; O2SAT 96
== END 2020-12-15 20:52 | disposition home or self-care (01) ==
PROVIDERS: Emergency Provider Emergency Medicine; PCP Family Medicine
DX: E11.621 Type 2 diabetes mellitus with foot ulcer (principal); L97.519 Non-pressure chronic ulcer of other part of right foot with unspecified severity; F17.210 Nicotine dependence, cigarettes, uncomplicated; E78.00 Pure hypercholesterolemia, unspecified; I10 Essential (primary) hypertension; Z79.4 Long term (current) use of insulin; Z79.899 Other long term (current) drug therapy
CPT/HCPCS: 73630; 80048; 83605; 85025; 87040; 87070; 87077; 87186; 87205; 96365; 96366; 96367; 96375; 99283; J7030; J7040; J2405

== ENCOUNTER → 2020-12-30 07:12 | Outpatient (CLI) | payer OTHER, SELFPAY ==
[2020-12-15 15:25] VITALS: BMI 31.1
--- NOTE | 2020-12-30 07:24 | MRI_ITS ---
STUDY: MRI RIGHT FOREFOOT WITHOUT CONTRAST REASON FOR EXAM: Right foot pain, diabetic with ulcer at the medial aspect of the great toe worse for 3 weeks, abnormal radiographs TECHNIQUE: Standardized fat and water weighted pulse sequences were obtained in all 3 orthogonal planes. COMPARISON: Radiographs 12/15/2020. FINDINGS: Normal metatarsophalangeal joint of the hallux. Normal tibial and fibular sesamoids, with normal sesamoids-first metatarsal articulations. Normal interphalangeal joint of the hallux. There is bone edema of the proximal and distal phalanges of the first digit (inversion recovery axial images 4-7) with corresponding decreased T1 bone marrow signal (T1 sagittal images 4-7) suggestive of osteomyelitis. Normal medial and lateral heads of the flexor hallucis brevis tendons. Normal flexor and extensor hallucis longus tendons. Normal second through fifth metatarsophalangeal (MTP) joints. Normal interphalangeal joints of the second through fifth toes. There is mild bone edema in the second proximal phalanx (inversion recovery sagittal image 12) without signal alteration of the T1 bone marrow, likely stress-related. Normal first through fourth intermetatarsal spaces. Normal flexor and extensor tendons of the second through fifth toes. There is mild patchy bone edema in the head and distal diaphysis of the first metatarsal (inversion recovery sagittal images 6, 7) without signal alteration of T1 bone marrow, likely stress-related. Normal intrinsic muscles of the forefoot. There is edema in the medial aspect of the first toe with an ulcer extending to the cortical margin of the distal phalanx (T2 series 9 image 10) without discrete fluid collection. MRI/Lower Ext/No Jt/w/o IMPRESSION: Signal alterations of the proximal and distal phalanges of the first digit suggestive of osteomyelitis with an ulcer extending to the cortical margin of the distal phalanx. Mild bone edema of the second proximal phalanx and distal first metatarsal, likely stress-related. Electronically Signed: Randall Urbina MD at 8:52 EDT Tel , Service support ,
== END ==
PROVIDERS: PCP Family Medicine; Referring Provider Podiatrist; Visit Provider Podiatrist
DX: M86.9 Osteomyelitis, unspecified (principal); L03.90 Cellulitis, unspecified; L97.519 Non-pressure chronic ulcer of other part of right foot with unspecified severity
CPT/HCPCS: 73718